=== PATIENT | male | born 1965 | race Caucasian/White ===

== ENCOUNTER → 2016-11-05 | Outpatient (CLI) | payer SELFPAY ==
--- NOTE | 2016-11-05 19:14 | DI ---
LEFT LITTLE FINGER EXAM, 11/05/2016 2:51 PM: Clinical History: Puncture wound of the left little finger. Previous Exam: None at this facility. 3 views are submitted. There is no fracture or dislocation. A skin defect is present on the palmar rodriguez rface of the DIP joint region. There is no radiopaque foreign body. No soft tissue gas or intra-artic ular gas is identified. Reading: There is no fracture or dislocation. No radiopaque foreign body is identified.
== END ==
LOC: RAD 14:53
PROVIDERS: ATTEND Nurse Practitioner Family
DX: S61.237A Puncture wound without foreign body of left little finger without damage to nail, initial encounter (principal); W20.8XXA Other cause of strike by thrown, projected or falling object, initial encounter
CPT/HCPCS: 73140